=== PATIENT | female | born 1995 | race Caucasian/White ===

== ENCOUNTER 2018-09-22 14:00 | Emergency (ER) | payer MEDICAID ==
[~2018-09-22] VITALS: Ht 160 cm; Wt 74.8 kg
[2018-09-22 14:04] VITALS: BP 139/85
--- NOTE | 2018-09-22 14:19 | NUR ---
PATIENT AMBULATED TO ER BED 4.
--- NOTE | 2018-09-22 14:29 | NUR ---
C/O N/V/D & SHARP EPIGASTRIC PAIN 12/07 STARTING TODAY, UNABLE TO KEEP WATER DOWN. PT REPORTS DRINKING 4 BEERS LAST NIGHT. LBM TODAY: DIARRHEA. BOWEL SOUNDS PRESENT X4, ABDOMEN SOFT/FLAT/NON TENDER TO PALPATION. PT ACTIVELY VOMITING IN THE ER. SKIN IS COOL/DRY. HEART RATE EVEN/REGULAR, BREATHING UNLABORED. BED IN LOW POSITION, SIDE RAIL UP X1, VOMIT BAG PROVIDED TO PATIENT.
--- NOTE | 2018-09-22 14:32 | NUR ---
Patient being evaluated by physician at bedside.
[2018-09-22] MEDS ORDERED: PROMETHAZINE 25 MG/ML VIAL IM ONE (14:45)
[2018-09-22] MEDS ORDERED: FAMOTIDINE 20 MG/2 ML VIAL IVP ONE (14:45)
[2018-09-22] MEDS ORDERED: NACL 0.9% 1,000 ML IV ONE (14:45)
[2018-09-22] MEDS ORDERED: diphenhydrAMINE 50 MG/ML VIAL IVP ONE (14:45)
[2018-09-22] MEDS ORDERED: KETOROLAC 30 MG/ML VIAL IVP ONE (14:45)
[2018-09-22] MEDS ORDERED: NACL 0.9% 1,000 ML IV SCH (14:45)
[2018-09-22 15:04] LABS: BASOPHILS % (AUTO) 0.2 % (0.0-2.0); HEMATOCRIT 41.2 % (36-48); HEMOGLOBIN 13.8 g/dL (12.0-16.0); LYMPHOCYTES % (AUTO) 7.5 % (20.5-51.1); MEAN CORPUSCULAR HEMOGLOBIN 29 pg (27-31); MEAN CORPUSCULAR HGB CONC 33 g/dL (33-37); MEAN CORPUSCULAR VOLUME 87.3 fL (80-94); MONOCYTES # (AUTO) 0.4 K/uL (0.8-1.0); MONOCYTES % (AUTO) 2.6 % (1.7-9.3); NEUTROPHILS # (AUTO) 12.1 K/uL (1.8-7.7); NEUTROPHILS % (AUTO) 89.7 % (42.2-75.2); PLATELET COUNT (AUTO) 291 K/uL (140-450); RED BLOOD CELL COUNT(AUTO) 4.73 MIL/uL (4.20-5.40); WHITE BLOOD COUNT (AUTO) 13.5 K/uL (4.8-10.8)
[2018-09-22 15:14] LABS: APPEARANCE,URINE CLEAR (CLEAR); BILIRUBIN,URINE NEGATIVE (NEGATIVE); BLOOD, URINE NEGATIVE (NEGATIVE); COLOR,URINE YELLOW (YELLOW); LEUKOCYTE ESTERASE ,URINE NEGATIVE (NEGATIVE); NITRITE, URINE NEGATIVE (NEGATIVE); PH,URINE 8.5 (5.0-9.0); UGLUCOSE NEGATIVE (NEGATIVE)
[2018-09-22 15:17] LABS: WBC,URINE 0-5 /HPF (0-5)
[2018-09-22 15:22] LABS: ALBUMIN 4.3 g/dL (3.4-5.0); AMYLASE 64 U/L (25-115); ANION GAP 19.7 (8-16); ASPARTATE AMINOTRANSFERASE 14 U/L (15-37); CARBON DIOXIDE 19.9 mmol/L (21-32); CHLORIDE 104 mmol/L (98-107); GFR ARICAN-AMERICAN 89 mL/min (>90); GLUCOSE 130 mg/dL (74-106); LIPASE 105 U/L (73-393); POTASSIUM 3.6 mmol/L (3.5-5.1); SODIUM SERUM 140 mmol/L (136-145); TOTAL BILIRUBIN 0.4 mg/dL (0.0-1.0); UREA NITROGEN, BLOOD 17 mg/dL (7-18)
[2018-09-22 15:23] LABS: BARBITURATE, URINE NEG. ng/ml (NEG <=200); BENZODIAZEPINE, URINE NEG. ng/mL (NEG <=200); CANNABINOID, URINE POS. ng/mL (NEG <=50); COCAINE, URINE NEG. ng/mL (NEG <=300); OPIATE, URINE NEG. ng/mL (NEG <=2000); PHENCYCLIDINE SCREEN,URINE NEG. ng/mL (NEG <=25)
--- NOTE | 2018-09-22 16:32 | NUR ---
PT ASLEEP IN BED, REPORTS FEELING BETTER AFTER MEDICATIONS
[2018-09-22 17:01] VITALS: BP 125/70
--- NOTE | 2018-09-22 17:01 | NUR ---
Patient discharged with v/s stable. Written and verbal after care instructions given and explained. Patient alert, oriented and verbalized understanding of instructions. Ambulatory with steady gait. All questions addressed prior to discharge. ID band removed. Patient advised to follow up with PMD. Rx of Compazine 10mg given. Patient educated on indication of medication including possible reaction and side effects. Opportunity to ask questions provided and answered.
== END 2018-09-22 17:01 | disposition home or self-care (01) ==
LOC: MED 14:00
DX: R11.2 Nausea with vomiting, unspecified (principal); R10.13 Epigastric pain; Z72.89 Other problems related to lifestyle; F12.90 Cannabis use, unspecified, uncomplicated
CPT/HCPCS: 36415; 80053; 80305; 81001; 81025; 82150; 83690; 85025; 96361; 96372; 96374; 96375; 99284; G0482; J1200; J1885; J2550; J3490; J7030